=== PATIENT | male | born 1975 | race Caucasian/White ===

== ENCOUNTER 2016-12-17 15:46 | Emergency (ER) | payer OTHER ==
--- NOTE | 2016-12-17 17:31 | ED ORDER SUMMARY ---
..... Patient: GABY SERRA OrderSheet [facility] VisitID: [id number] [address] [place] [address] 41y, M Registration Date/Time: 12/17/2016 ORDER SHEET Weight: 68.0 kg (stated) Allergies: None GENERAL ORDERS: MEDICATION ORDERS: Phenergan IV 12.5 mg (HIGH ALERT MEDICATION, NOW) (16:24 12/17/2016 EKoroleva P.A.-C) (16:49 DMaziarka R.N.) IV FLUIDS: Toradol IV 30 mg (NOW) (16:24 12/17/2016 EKoroleva P.A.-C) (16:48 DMaziarka R.N.) Zofran IV 8 mg (NOW) (16:24 12/17/2016 EKoroleva P.A.-C) (16:53 DMaziarka R.N.) Benadryl IV 25 mg (NOW) (16:24 12/17/2016 EKoroleva P.A.-C) (16:49 DMaziarka R.N.) IV NS : initial bolus 1000 mL (1000 mL/hr), then 100 mL/hr for X1 (NOW); Hang (16:24 12/17/2016 EKoroleva P.A.-C) (16:50 DMaziarka R.N.) Dilaudid IV 0.5 mg (HIGH ALERT MEDICATION, NOW) (17:29 12/17/2016 EKoroleva P.A.-C) (Ack 17:31 DMaziarka R.N.) (17:38 DMaziarka R.N.) ORDER SHEET NOTES: [Electronically signed by Brittanie Ibarra R.N. (18:09 12/17/2016)] [Electronically signed by Emeli Castillo P.A.-C (18:34 12/17/2016)] [Electronically locked/signed by Brittanie Ibarra R.N. (18:09 12/17/2016)]
--- NOTE | 2016-12-17 17:31 | ED CLINICAL REPORT ---
Clinical Report - Physicians/Mid Levels [facility] [address] [place] [address] 12/17/2016 15:47 Patient: GABY SERRA Time Seen: 16:26 Dec 17 2016. Historian- patient. HISTORY OF PRESENT ILLNESS Is still present. Chief Complaint: HEADACHE. This started 2 days POOL HAND. It is described as similar to previous headaches. Located in the region of the right eye, frontal and occipital region and facial region. No neck pain. The patient has had nausea. No preceding symptoms, numbness or vomiting. (patient presents with third consecutive day of headache, throbbing in nature with light sensitivity, nausea, with dizziness. patient with no trauma. Denies any neck pain. Denies any fevers. Patient reports rhinorrhea recently. Reports history of similar headache.). REVIEW OF SYSTEMS No fever, sinus pressure, carbon monoxide exposure, tick bite or abdominal pain. No diarrhea, skin rash or enlarged lymph nodes. All systems otherwise negative, except as recorded above. PAST HISTORY No history of glaucoma. Problems: Cervical Strain. Hypertension. Neck Pain. Back Pain. Medications: Ibuprofen Oral. Tizanidine Comfort Pac Combination. Allergies: None. SOCIAL HISTORY Smoker- current status unknown. No alcohol use. ADDITIONAL NOTES The nursing notes have been reviewed. PHYSICAL EXAM Vital Signs: 12/17/2016 16:07 BP: 136/89. HR: 92. RR: 16. O2 saturation: 99%. Temp: 98.3 F. Appearance: Alert. ENT: Ears normal. Nose normal. Neck: Normal inspection. CVS: Normal heart rate and rhythm. Heart sounds normal. Respiratory: No respiratory distress. Breath sounds normal. Abdomen: Soft. No organomegaly. Back: Normal inspection. Skin: Skin warm. Normal skin color. Extremities: Extremities exhibit normal ROM. Neuro: Oriented X 3. Alert. Cranial nerves normal (as tested). No cerebellar findings. No motor deficit. PROGRESS AND PROCEDURES Course of Care: patient with improvement of his symptoms. Negative neuro exam. Symptoms are normal for 3 days off and on. History of similar. Less likely consistent with intracranial hemorrhage, meningitis. 12/17/2016 17:50 BP: 122/79. HR: 78. RR: 16. O2 saturation: 99%. Patient is stable. Physical exam findings are improved. Symptoms better. Patient/family counseled. Differential Diagnosis: I considered migraine, vascular malformation, vascular dissection, malignant hypertension, cerebral venous thrombosis, bacterial meningitis, encephalitis, sinusitis, carbon monoxide exposure, trigeminal neuralgia, subdural hematoma and muscle tension as a possible cause of headache in this patient. This is a partial list of diagnoses considered. Disposition: Condition: good. CLINICAL IMPRESSION Acute migraine headache. INSTRUCTIONS Warnings: Further evaluation is necessary. SEDATIVE MEDICATION: You were given sedative medication during your visit. Do not drive or operate dangerous machinery. Prescription Medications: Meclizine 25 mg: take 1 tablet orally every 8 hours as needed for dizziness. Dispense ten (10). No refill. Fioricet: Take 1-2 orally every 4 hours as needed for headache. Dispense twenty (20). No refills. Substitution is permissible. Follow-up: Follow up with your doctor in two days. (Electronically signed by Emeli Castillo P.A.-C 12/17/2016 18:34)
--- NOTE | 2016-12-17 17:31 | ED CLINICAL REPORT ---
Clinical Report - Physicians/Mid Levels [facility] [address] [place] [address] 12/17/2016 15:47 Patient: GABY SERRA Time Seen: 16:26 Dec 17 2016. Historian- patient. HISTORY OF PRESENT ILLNESS Is still present. Chief Complaint: HEADACHE. This started 2 days [employer]. It is described as similar to previous headaches. Located in the region of the right eye, frontal and occipital region and facial region. No neck pain. The patient has had nausea. No preceding symptoms, numbness or vomiting. (patient presents with third consecutive day of headache, throbbing in nature with light sensitivity, nausea, with dizziness. patient with no trauma. Denies any neck pain. Denies any fevers. Patient reports rhinorrhea recently. Reports history of similar headache.). REVIEW OF SYSTEMS No fever, sinus pressure, carbon monoxide exposure, tick bite or abdominal pain. No diarrhea, skin rash or enlarged lymph nodes. All systems otherwise negative, except as recorded above. PAST HISTORY No history of glaucoma. Problems: Cervical Strain. Hypertension. Neck Pain. Back Pain. Medications: Ibuprofen Oral. Tizanidine Comfort Pac Combination. Allergies: None. SOCIAL HISTORY Smoker- current status unknown. No alcohol use. ADDITIONAL NOTES The nursing notes have been reviewed. PHYSICAL EXAM Vital Signs: 12/17/2016 16:07 BP: 136/89. HR: 92. RR: 16. O2 saturation: 99%. Temp: 98.3 F. Appearance: Alert. ENT: Ears normal. Nose normal. Neck: Normal inspection. CVS: Normal heart rate and rhythm. Heart sounds normal. Respiratory: No respiratory distress. Breath sounds normal. Abdomen: Soft. No organomegaly. Back: Normal inspection. Skin: Skin warm. Normal skin color. Extremities: Extremities exhibit normal ROM. Neuro: Oriented X 3. Alert. Cranial nerves normal (as tested). No cerebellar findings. No motor deficit. PROGRESS AND PROCEDURES Course of Care: patient with improvement of his symptoms. Negative neuro exam. Symptoms are normal for 3 days off and on. History of similar. Less likely consistent with intracranial hemorrhage, meningitis. 12/17/2016 17:50 BP: 122/79. HR: 78. RR: 16. O2 saturation: 99%. Patient is stable. Physical exam findings are improved. Symptoms better. Patient/family counseled. Differential Diagnosis: I considered migraine, vascular malformation, vascular dissection, malignant hypertension, cerebral venous thrombosis, bacterial meningitis, encephalitis, sinusitis, carbon monoxide exposure, trigeminal neuralgia, subdural hematoma and muscle tension as a possible cause of headache in this patient. This is a partial list of diagnoses considered. Disposition: Condition: good. CLINICAL IMPRESSION Acute migraine headache. INSTRUCTIONS Warnings: Further evaluation is necessary. SEDATIVE MEDICATION: You were given sedative medication during your visit. Do not drive or operate dangerous machinery. Prescription Medications: Meclizine 25 mg: take 1 tablet orally every 8 hours as needed for dizziness. Dispense ten (10). No refill. Fioricet: Take 1-2 orally every 4 hours as needed for headache. Dispense twenty (20). No refills. Substitution is permissible. Follow-up: Follow up with your doctor in two days. (Electronically signed by Emeli Castillo P.A.-C 12/17/2016 18:34)
--- NOTE | 2016-12-17 17:31 | ED ORDER SUMMARY ---
..... Patient: GABY SERRA OrderSheet [facility] VisitID: [id number] [address] [place] [address] 41y, M Registration Date/Time: 12/17/2016 ORDER SHEET Weight: 68.0 kg (stated) Allergies: None GENERAL ORDERS: MEDICATION ORDERS: Phenergan IV 12.5 mg (HIGH ALERT MEDICATION, NOW) (16:24 12/17/2016 EKoroleva P.A.-C) (16:49 DMaziarka R.N.) IV FLUIDS: Toradol IV 30 mg (NOW) (16:24 12/17/2016 EKoroleva P.A.-C) (16:48 DMaziarka R.N.) Zofran IV 8 mg (NOW) (16:24 12/17/2016 EKoroleva P.A.-C) (16:53 DMaziarka R.N.) Benadryl IV 25 mg (NOW) (16:24 12/17/2016 EKoroleva P.A.-C) (16:49 DMaziarka R.N.) IV NS : initial bolus 1000 mL (1000 mL/hr), then 100 mL/hr for X1 (NOW); Hang (16:24 12/17/2016 EKoroleva P.A.-C) (16:50 DMaziarka R.N.) Dilaudid IV 0.5 mg (HIGH ALERT MEDICATION, NOW) (17:29 12/17/2016 EKoroleva P.A.-C) (Ack 17:31 DMaziarka R.N.) (17:38 DMaziarka R.N.) ORDER SHEET NOTES: [Electronically signed by Brittanie Ibarra R.N. (18:09 12/17/2016)] [Electronically signed by Emeli Castillo P.A.-C (18:34 12/17/2016)] [Electronically locked/signed by Brittanie Ibarra R.N. (18:09 12/17/2016)]
--- NOTE | 2016-12-17 17:31 | ED NURSING NOTES ---
Clinical Report - Nurses [facility] [address] [place] [address] 12/17/2016 15:47 Patient: GABY SERRA TRIAGE Triage time 16:07. Acuity: LEVEL 4. Chief Complaint: MIGRAINE HEADACHE. Alert. --16:14 Brittanie Ibarra R.N. 16:06 12/17/16. BP: 136/89. HR: 92. RR: 16. O2 saturation: 99%. Temp: 98.3 F. Pain level now 01/26. --16:14 Brittanie Ibarra R.N. Weight: 68 kg stated. Height/Length: 67 inches Per Patient. BMI: 23.5. --16:11 Brittanie Ibarra R.N. Medications Tizanidine Comfort Pac Combination. --16:08 Brittanie Ibarra R.N. Ibuprofen Oral. --16:09 Brittanie Ibarra R.N. Allergies None. --16:09 Brittanie Ibarra R.N. History Arrived by private vehicle. Historian: patient. Accompanied by family. Primary physician (Savita). This started about 2 days. ( HX 09 migraines. Had this for 2 days but hasn't had them for many years. Recent sinus infection and vertigo. Frontal GALVAN over right eye area). He has had nausea. No vomiting. SOCIAL HX: Current every day heavy tobacco smoker (cigarette)- less than 1 pack per day. No alcohol use or drug use. --16:14 Brittanie Ibarra R.N. PROBLEMS: Cervical Strain. Hypertension. Neck Pain. Back Pain. --16:08 Brittanie Ibarra R.N. PHYSICAL ASSESSMENT GENERAL / NEURO / PSYCH: Alert. Oriented X 4. Appears in pain. HEENT: No facial asymmetry noted. Photophobia present. --16:14 Brittanie Ibarra R.N. NURSING PROGRESS NOTES Two patient identifiers checked. Call light placed in reach. Side rails up x 1. Patient ready for evaluation- PA notified. --16:14 Brittanie Ibarra R.N. 16:33 12/17/2016 Site #1 started via IV in the right antecubital space with an 18g angiocath; one attempt. --16:48 Brittanie Ibarra R.N. 16:38 12/17/2016 Toradol IVP 30 mg given over 2 minute(s) via site #1. Allergies verified and confirmed 5 rights. IV patency established. IV site checked: no pain, redness, or swelling. IV flushed thoroughly pre- and post-medication administration. IVP given by RN. --16:48 Brittanie Ibarra R.N. 16:44 12/17/2016 PHENERGAN (Promethazine HCl) IVP 12.5 mg given over 2 minute(s) via site #1. Allergies verified and confirmed 5 rights. IV patency established. IV site checked: no pain, redness, or swelling. IV flushed thoroughly pre- and post-medication administration. IVP given by RN. --16:49 Brittanie Ibarra R.N. 16:44 12/17/2016 Benadryl (DiphenhydrAMINE HCl) IVP 25 mg given over 2 minute(s) via site #1. Allergies verified and confirmed 5 rights. IV patency established. IV site checked: no pain, redness, or swelling. IV flushed thoroughly pre- and post-medication administration. IVP given by RN. --16:49 Brittanie Ibarra R.N. 16:45 12/17/2016 Started bag #1 1000 mL IV Fluids IV NS (Saline); bolus of 1000 mL over 30 minute(s) then at 100 mL/hr over 1 hour(s) via site #1 via IV pump. Allergies verified and confirmed 5 rights. IV patency established. IV site checked: no pain, redness, or swelling. IV flushed thoroughly pre- and post-medication administration. --16:50 Brittanie Ibarra R.N. 16:53 12/17/2016 Zofran (Ondansetron HCl) IVP 8 mg given over 2 minute(s) via site #1. Allergies verified and confirmed 5 rights. IV patency established. IV site checked: no pain, redness, or swelling. IV flushed thoroughly pre- and post-medication administration. IVP given by RN. --16:53 Brittanie Ibarra R.N. 17:13 12/17/2016 IV Fluids IV NS Bag Change: bag #1 infused. Total amount infused: 1000. STARTED bag #2 (1000 mL) at 100 mL/hr via IV pump. Confirmed 5 rights. IV patency established. IV site checked: no pain, redness, or swelling. IV flushed thoroughly. --17:28 Brittanie Ibarra R.N. 17:33 12/17/2016 Dilaudid (HYDROmorphone HCl PF) IVP 0.5 mg given. via site #1. Allergies verified, confirmed 5 rights and sedative warning given to the patient. IV patency established. IV site checked: no pain, redness, or swelling. IV flushed thoroughly pre- and post-medication administration. IVP given by RN. --17:38 Brittanie Ibarra R.N. DISPOSITION / DISCHARGE Departure time: 17:50. Condition at departure: improved. No learning barriers present. Discharge instructions provided and reviewed with the patient. Patient verbalized understanding. Written instructions provided in Malay. The patient was discharged home and accompanied by family. He left the Emergency Department ambulatory and via private vehicle. Family member driving. --17:51 Brittanie Ibarra R.N. 17:50 12/17/16. BP: 122/79. HR: 78. RR: 16. O2 saturation: 99%. Pain level now 10. --17:51 Brittanie Ibarra R.N. Locked/Released at 12/17/2016 18:09 by Brittanie Ibarra R.N.
--- NOTE | 2016-12-17 18:35 | ED MAR SUMMARY ---
..... Medication Administration Record [facility] [address] [place] [address] Patient: GABY SERRA Visit ID: [id number] 41y, M Weight: 68.0 kg Height/Length: 67 in BMI: 23.5 ALLERGIES: None Given 16:38 12/17/2016 Brittanie Ibarra R.N. Medication Administered: TORADOL [IVP], Dose: 30 mg IVP over 2 minute(s), Site: #1 right AC. Medication Ordered: Toradol IV 30 mg (NOW). Given 16:44 12/17/2016 Brittanie Ibarra R.N. Medication Administered: PHENERGAN [IVP] (PROMETHAZINE HCL), Dose: 12.5 mg IVP over 2 minute(s), Site: #1 right AC. Medication Ordered: Phenergan IV 12.5 mg (HIGH ALERT MEDICATION, NOW). Given 16:44 12/17/2016 Brittanie Ibarra R.N. Medication Administered: BENADRYL [IVP] (DIPHENHYDRAMINE HCL), Dose: 25 mg IVP over 2 minute(s), Site: #1 right AC. Medication Ordered: Benadryl IV 25 mg (NOW). Start 16:45 12/17/2016 Brittanie Ibarra R.N. Medication Administered: IV NS (SALINE), Dose: IV Fluids over 1 hour(s), Rate: 100 mL/hr, Bolus: 1000 mL over 30 minute(s), Dispensed: 1000 mL bag, Site: #1 right AC. Medication Ordered: IV NS : initial bolus 1000 mL (1000 mL/hr), then 100 mL/hr for X1 (NOW); Hang. Given 16:53 12/17/2016 Brittanie Ibarra R.N. Medication Administered: ZOFRAN [IVP] (ONDANSETRON HCL), Dose: 8 mg IVP over 2 minute(s), Site: #1 right AC. Medication Ordered: Zofran IV 8 mg (NOW). Given 17:33 12/17/2016 Brittanie Ibarra R.N. Medication Administered: DILAUDID [IVP] (HYDROMORPHONE HCL PF), Dose: 0.5 mg IVP, Site: #1 right AC. Medication Ordered: Dilaudid IV 0.5 mg (HIGH ALERT MEDICATION, NOW).
--- NOTE | 2016-12-17 18:35 | ED DISCHARGE INSTRUCTIONS ---
Patient: GABY SERRA General Instructions [facility] VisitID: [id number] [place] [address] 41y, M Registration Date/Time: 12/17/2016 Acute migraine headache. INSTRUCTIONS Warnings: Further evaluation is necessary. SEDATIVE MEDICATION: You were given sedative medication during your visit. Do not drive or operate dangerous machinery. Prescription Medications: Meclizine 25 mg: take 1 tablet orally every 8 hours as needed for dizziness. Dispense ten (10). No refill. Fioricet: Take 1-2 orally every 4 hours as needed for headache. Dispense twenty (20). No refills. Substitution is permissible. Follow-up: Follow up with your doctor in two days. ADDITIONAL INFORMATION Migraine Headache Migraine headaches are related to changes in blood flow to the brain. This causes throbbing or constant pain on one or both sides of the head. The pain may last from a few hours to several days. There is usually nausea, vomiting, sensitivity to light and sound, and blurred vision. A migraine attack may be triggered by emotional stress, hormone changes during the menstrual cycle, oral contraceptives, alcohol use, certain foods containing tyramine, eye strain, weather changes, missing meals, or too little or too much sleep. Home Care For This Headache: 1) If you were given pain medicine for this headache, do not drive yourself home . Arrange for a ride, instead. When you get home, try to sleep. You should feel much better when you wake up. 2) Migraine headaches may improve with an ice pack on the forehead or at the base of the skull. Heat to the back of your neck may relieve any neck spasm. 3) Drink only clear liquids or eat a very light diet to avoid nausea/vomiting until symptoms improve. Preventing Future Headaches: 1) Pay attention to those factors that seem to trigger your headache. Try to avoid them when you can. If you have frequent headaches, it is useful to keep a diary of what you were doing, feeling or eating in the hours before each attack. Show this to your doctor to help find the cause of your headaches. a) If you feel that stress is a factor in your headaches, look at the sources of stress in your life. Find ways to release the build-up of those stresses by using regular exercise, relaxation methods (yoga, meditation), bio-feedback or simply taking time-out for yourself. For more information about this, consult your doctor or go to a local bookstore and review books and tapes on this subject. b) Tyramine is a substance present in the following foods : chocolate, yogurt, all cheeses except cottage cheese and cream cheese. smoked or pickled fish and meat (including davenport, caviar, bologna, pepperoni, salami), liver, avocados, bananas, figs, raisins, and red wine. Be aware that these foods may trigger a migraine in some persons. Try taking these foods out of your diet for 1-2 months to see if this reduces headache frequency. Treating Future Attacks: 1) At the first sign of a headache, take time out if possible. Find a quiet, dark, comfortable place to sit or lie down. Let yourself relax or sleep. 2) An ice pack on the forehead or area of greatest pain may help. If you are having muscle spasm and tightness of the neck, a heating pad and massage to this area may be helpful. 3) If you have been prescribed a medicine to stop a migraine headache, use this at the very first warning sign of the headache (aura or initial pain) for best results. Follow Up with your doctor if the headache is not better within the next 24 hours. If you have frequent headaches you should discuss a treatment plan with your primary care doctor. Ask if you can have medicine to take at home the next time you get a bad headache. Poorly controlled chronic headaches may require a referral to a neurologist (headache specialist). Get Prompt Medical Attention if any of the following occur: Your head pain gets worse, or does not improve within 24 hours Repeated vomiting (cant keep liquids down) Sinus or ear or throat pain (not already reported) Fever of 100.4 F (38 C) or higher, or as directed by your healthcare provider Stiff neck Extreme drowsiness, confusion or fainting Dizziness, vertigo (dizziness with spinning sensation) Weakness of an arm or leg or one side of the face Difficulty with speech or vision You have been given the following additional information: Headache, Migraine (Classical) (Electronically signed by Emeli Castillo P.A.-C 12/17/2016 18:34)
--- NOTE | 2016-12-17 18:35 | ED MAR SUMMARY ---
..... Medication Administration Record [facility] [address] [place] [address] Patient: GABY SERRA Visit ID: [id number] 41y, M Weight: 68.0 kg Height/Length: 67 in BMI: 23.5 ALLERGIES: None Given 16:38 12/17/2016 Brittanie Ibarra R.N. Medication Administered: TORADOL [IVP], Dose: 30 mg IVP over 2 minute(s), Site: #1 right AC. Medication Ordered: Toradol IV 30 mg (NOW). Given 16:44 12/17/2016 Brittnaie Ibarra R.N. Medication Administered: PHENERGAN [IVP] (PROMETHAZINE HCL), Dose: 12.5 mg IVP over 2 minute(s), Site: #1 right AC. Medication Ordered: Phenergan IV 12.5 mg (HIGH ALERT MEDICATION, NOW). Given 16:44 12/17/2016 Brittanie Ibarra R.N. Medication Administered: BENADRYL [IVP] (DIPHENHYDRAMINE HCL), Dose: 25 mg IVP over 2 minute(s), Site: #1 right AC. Medication Ordered: Benadryl IV 25 mg (NOW). Start 16:45 12/17/2016 Brittanie Ibarra R.N. Medication Administered: IV NS (SALINE), Dose: IV Fluids over 1 hour(s), Rate: 100 mL/hr, Bolus: 1000 mL over 30 minute(s), Dispensed: 1000 mL bag, Site: #1 right AC. Medication Ordered: IV NS : initial bolus 1000 mL (1000 mL/hr), then 100 mL/hr for X1 (NOW); Hang. Given 16:53 12/17/2016 Brittanie Ibarra R.N. Medication Administered: ZOFRAN [IVP] (ONDANSETRON HCL), Dose: 8 mg IVP over 2 minute(s), Site: #1 right AC. Medication Ordered: Zofran IV 8 mg (NOW). Given 17:33 12/17/2016 Brittanie Ibarra R.N. Medication Administered: DILAUDID [IVP] (HYDROMORPHONE HCL PF), Dose: 0.5 mg IVP, Site: #1 right AC. Medication Ordered: Dilaudid IV 0.5 mg (HIGH ALERT MEDICATION, NOW).
--- NOTE | 2016-12-17 18:35 | ED MED RECONCILIATION SUMMARY ---
Patient: GABY SERRA Medication Reconciliation Report [facility] VisitID: [id number] [address] [place] [address] 41y, M Registration Date/Time: 12/17/2016 Weight: 68.0 kg Height/Length: 67 in. BMI: 23.5 ALLERGIES: None The patient's Home Medications are listed below: THE FOLLOWING MEDICATIONS NEED TO BE RECONCILED: Ibuprofen Oral Tizanidine Comfort Pac Combination The source(s) of the original Home Medication information: Not obtained. The following Medications were given to the patient in the Emergency Department: Toradol [IVP] IVP 30 mg, administered: 12/17/2016 4:38:00 PM PHENERGAN [IVP] IVP 12.5 mg, administered: 12/17/2016 4:44:00 PM Benadryl [IVP] IVP 25 mg, administered: 12/17/2016 4:44:00 PM IV NS IV Fluids bolus 1000 mL over 30 minute(s), then 100 mL/hr, administered: 12/17/2016 4:45:00 PM Zofran [IVP] IVP 8 mg, administered: 12/17/2016 4:53:00 PM Dilaudid [IVP] IVP 0.5 mg, administered: 12/17/2016 5:33:00 PM The following Medications were prescribed to the patient: Meclizine 25 mg: take 1 tablet orally every 8 hours as needed for dizziness. Dispense ten (10). No refill. -- Emeli Castillo PPriscilaAGaldino Fioricet: Take 1-2 orally every 4 hours as needed for headache. Dispense twenty (20). No refills. Substitution is permissible. -- Emeli Castillo P.APriscila-Honorio
--- NOTE | 2016-12-17 18:35 | ED MED RECONCILIATION SUMMARY ---
Patient: GABY SERRA Medication Reconciliation Report [facility] VisitID: [id number] [address] [place] [address] 41y, M Registration Date/Time: 12/17/2016 Weight: 68.0 kg Height/Length: 67 in. BMI: 23.5 ALLERGIES: None The patient's Home Medications are listed below: THE FOLLOWING MEDICATIONS NEED TO BE RECONCILED: Ibuprofen Oral Tizanidine Comfort Pac Combination The source(s) of the original Home Medication information: Not obtained. The following Medications were given to the patient in the Emergency Department: Toradol [IVP] IVP 30 mg, administered: 12/17/2016 4:38:00 PM PHENERGAN [IVP] IVP 12.5 mg, administered: 12/17/2016 4:44:00 PM Benadryl [IVP] IVP 25 mg, administered: 12/17/2016 4:44:00 PM IV NS IV Fluids bolus 1000 mL over 30 minute(s), then 100 mL/hr, administered: 12/17/2016 4:45:00 PM Zofran [IVP] IVP 8 mg, administered: 12/17/2016 4:53:00 PM Dilaudid [IVP] IVP 0.5 mg, administered: 12/17/2016 5:33:00 PM The following Medications were prescribed to the patient: Meclizine 25 mg: take 1 tablet orally every 8 hours as needed for dizziness. Dispense ten (10). No refill. -- Emeli Castillo PPriscilaAGaldino Fioricet: Take 1-2 orally every 4 hours as needed for headache. Dispense twenty (20). No refills. Substitution is permissible. -- Emeli Castillo P.APriscila-Honorio
== END 2016-12-17 17:50 | disposition home or self-care (01) ==
LOC: ED SRH 15:46
DX: G43.909 Migraine, unspecified, not intractable, without status migrainosus (principal); I10 Essential (primary) hypertension; Z79.899 Other long term (current) drug therapy; Z79.1 Long term (current) use of non-steroidal anti-inflammatories (NSAID)